=== PATIENT | male | born 1985 | race Caucasian/White ===

== ENCOUNTER → 2016-12-26 | Outpatient (REF) | payer BC | LOC: M LAB REF 21:15 | PROVIDERS: ATTEND Physician Assistant | DX: J02.9 Acute pharyngitis, unspecified (principal) ==

== ENCOUNTER → 2017-12-15 | Outpatient (REF) | payer BC | LOC: M LAB REF 09:22 | DX: J02.9 Acute pharyngitis, unspecified (principal) | CPT/HCPCS: 87070; 87430 ==

== ENCOUNTER → 2022-02-19 | Outpatient (CLI) | payer OTHER | LOC: M WUC 08:39 | PROVIDERS: ATTEND Physician Assistant | DX: M79.662 Pain in left lower leg (principal) ==